=== PATIENT | female | born 1985 | race African-American/Black ===

== ENCOUNTER 2016-02-24 16:32 | Emergency (ER) | payer OTHER ==
[~2016-02-24 16:32] MED LIST: DOCU10CA PO; FISH500C PO; MELA0.02 PO; MOTR200T44 PO; PERCOCET PO; PRENTAB43 PO; birth control pill PO; combination cream TOP
--- NOTE | 2016-02-24 19:00 | EDDOCDS ---
Physician Documentation [facility] Name: Autumn Xiong Age: 30 yrs Sex: Female : 1985 Arrival Date: 02/24/2016 Time: 16:32 Bed TR8 [facility]: 02/24/16 18:26 Discharged to Home/Self Care. Impression: Dermatitis, unspecified. - Condition is Stable. - Discharge Instructions: Rash. - Prescriptions for hydrocortisone 0.5 % Topical cream - apply 1 application by TOPICAL route 3 times per day apply small amount to affected areas; 1 tube. diphenhydramine HCl 50 mg Oral Capsule - take 1 capsule by ORAL route every 6 hours As needed; 30 capsule. - Medication Reconciliation, Local Pharmacy Hours form. - [facility]; When: 2 - 3 days; Reason: Recheck today's complaints, Continuance of care. - Problem is new. - Symptoms have improved. - Notes: USE MEDICATIONS INSTRUCTED, FOLLOW UP WITH YOUR PRIMARY DOCTOR, RETURN TO THE ER IF THE SYMPTOMS WORSEN OR BECOME CONCERNING Historical: - Allergies: no known allergies; - Home Meds: 1. Zoloft Oral once daily 2. Fish Oil Unknown Oral daily - PMHx: Depression; Anxiety; insomnia; Headaches; - PSHx: ; - Social history: Smoking status: Patient states was never smoker of tobacco. No barriers to communication noted, The patient speaks fluent Cameroonian, Speaks appropriately for age. - Family history: Not pertinent. - : The pt / caregiver states he / she is not on anticoagulants. Home medication list is obtained from the patient. - Exposure Risk Screening:: None identified. 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 2 in. (157.48 cm) (R); 16:33 Body Mass Index 23.78 (58.97 kg, 157.48 cm) dd6 MDM: 18:40 [facility] Payment Agreement was scanned into [email or web address] and attached to record. carlitos 18:40 Financial registration complete. carlitos Signatures: Gladis Caban, RN RN Long Peralta RN Tremaine Chandra, RPA-C RPA-Cck7 Kandi Rodriguez The chart was reviewed and I authenticate all verbal orders and agree with the evaluation and treatment provided.Attachments: 18:40 [facility] Payment Agreement carlitos MTDD
--- NOTE | 2016-02-24 19:00 | EDDOCDS ---
Nurse's Notes [facility] Name: Autumn Xiong Age: 30 yrs Sex: Female : 1985 Arrival Date: 02/24/2016 Time: 16:32 Bed TR8 Private MD: [place] CAMPO Diagnosis: Dermatitis, unspecified Presentation: 02/23 16:37 Presenting complaint: Patient states: skin on abdomen and back is itchy. started last srm night. Presenting complaint: Patient states: didn't use benadryl or lotion. Adult Sepsis Screening: The patient does not have new or worsening altered mentation. Patient's respiratory rate is less than 22. Systolic blood pressure is greater than 100. Patient has a qSOFA score of 0- Negative Sepsis Screen. Suicide/Homicide risk assessment- the patient denies having any suicidal and/or homicidal ideations and does not present with any other emotional, behavioral or mental health complaints. 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 Transition of care: patient was not received from another setting of care. 16:37 Acuity: USHA Level 5 srm 16:37 Method Of Arrival: Walkin/Carried/Asstd [facility] Triage Assessment: 16:39 General: Appears in no apparent distress, Behavior is appropriate for age, cooperative. srm Pain: Pain currently is 8 out of 10 on a pain scale. 16:40 HIV screening NA for this visit Offered previously. 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 Zoloft Oral once daily 2. Fish Oil Unknown Oral daily - PMHx: Depression; Anxiety; insomnia; Headaches; - PSHx: ; - Social history: Smoking status: Patient states was never smoker of tobacco. No barriers to communication noted, The patient speaks fluent South African, Speaks appropriately for age. - Family history: Not pertinent. - : The pt / caregiver states he / she is not on anticoagulants. Home medication list is obtained from the patient. - Exposure Risk Screening:: None identified. Screenin:57 Screening information is obtained from the patient. Fall risk: No risks identified. dy Assistance ADL's: requires no assistance with activities of daily living. Abuse/DV Screen: The patient / caregiver reports he/she is: not in a situation that causes fear, pain or injury. Nutritional screening: No deficits noted. Advance Directives: Currently, there is no health care proxy. home support is adequate. Assessment: 18:58 Respiratory: Airway is patent Respiratory effort is even, unlabored. dy Vital Signs: 16:33 BP 165 / 103; Pulse 81; Resp 18 S; Temp 98.5(O); Pulse Ox 100% on R/A; Weight 58.97 kg dd6 (R); Height 5 ft. 2 in. (157.48 cm) (R); 16:33 Body Mass Index 23.78 (58.97 kg, 157.48 cm) dd6 Vitals: 16:33 Log In Time: February 24, 2016 at 16:31. dd6 ED Course: 16:32 Patient visited by Emmanuel Holder PCA. dd6 16:32 Patient moved to Waiting dd6 16:33 [facility] is Private Physician. dd6 16:35 Patient moved to Pre RCE dd6 16:38 Triage Initiated srm 17:42 Patient moved to Triage 3 jf3 17:55 Patient visited by Tammy Allison PCA. jb5 17:55 Tremaine Hernadez RPA-C [facility] ck7 17:56 Quita Gusman MD is Attending Physician. ck7 18:11 Patient visited by Tremaine Hernadez RPA-C. ck7 18:26 [facility] is Referral Physician. ck7 18:37 Patient moved to TR8 jb5 18:40 [facility] Payment Agreement was scanned into [employer] and attached to record. gjb 18:46 Patient name changed from Autumn\S\\S\[place]\S\ to Autumn\S\ \S\Tyrese. EDMS 18:58 The patient / caregiver is instructed regarding the plan of care and ED course. dy 18:58 No IV's were initiated during this patient's visit. No procedures done that require dy assistance. Order Results: There are currently no results for this order. Outcome: 18:26 Discharge ordered by Provider. ck7 18:58 Discharge Assessment: patient administered narcotics - no. The following High Risk dy Discharge criteria are identified: None. Discharged to home ambulatory. Condition: stable. Discharge instructions given to patient, Instructed on discharge instructions, follow up and referral plans. medication usage, Demonstrated understanding of instructions, medications, Pt was receptive of discharge instructions/ teaching. Prescriptions given X 2. No special radiology studies were completed. Property sent home with patient. 18:58 Patient left the ED. dy Signatures: Dispatcher Med[employer] EDMS Gladis Caban, RN RN Long Peralta, RN RN Tammy Bruno, CUSTOMS BROKERAGE MANAGER CUSTOMS BROKERAGE MANAGER jb5 Emmanuel Holder, CUSTOMS BROKERAGE MANAGER CUSTOMS BROKERAGE MANAGER dd6 Tremaine Hernadez, RPA-C RPA-Cck7 Gera Roldan,RN RN Kandi Snell MTDD
--- NOTE | 2016-02-26 19:59 | EDDOCDS ---
Nurse's Notes [facility] Name: Autumn Xiong Age: 30 yrs Sex: Female : 1985 Arrival Date: 02/24/2016 Time: 16:32 Bed TR8 Private MD: [place]Angela CAMPO Diagnosis: Dermatitis, unspecified Presentation: 02/23 16:37 Presenting complaint: Patient states: skin on abdomen and back is itchy. started last srm night. Presenting complaint: Patient states: didn't use benadryl or lotion. Adult Sepsis Screening: The patient does not have new or worsening altered mentation. Patient's respiratory rate is less than 22. Systolic blood pressure is greater than 100. Patient has a qSOFA score of 0- Negative Sepsis Screen. Suicide/Homicide risk assessment- the patient denies having any suicidal and/or homicidal ideations and does not present with any other emotional, behavioral or mental health complaints. 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 Transition of care: patient was not received from another setting of care. 16:37 Acuity: USHA Level 5 srm 16:37 Method Of Arrival: Walkin/Carried/Asstd [facility] Triage Assessment: 16:39 General: Appears in no apparent distress, Behavior is appropriate for age, cooperative. srm Pain: Pain currently is 8 out of 10 on a pain scale. 16:40 HIV screening NA for this visit Offered previously. 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 Zoloft Oral once daily 2. Fish Oil Unknown Oral daily - PMHx: Depression; Anxiety; insomnia; Headaches; - PSHx: ; - Social history: Smoking status: Patient states was never smoker of tobacco. No barriers to communication noted, The patient speaks fluent Jamaican, Speaks appropriately for age. - Family history: Not pertinent. - : The pt / caregiver states he / she is not on anticoagulants. Home medication list is obtained from the patient. - Exposure Risk Screening:: None identified. Screenin:57 Screening information is obtained from the patient. Fall risk: No risks identified. dy Assistance ADL's: requires no assistance with activities of daily living. Abuse/DV Screen: The patient / caregiver reports he/she is: not in a situation that causes fear, pain or injury. Nutritional screening: No deficits noted. Advance Directives: Currently, there is no health care proxy. home support is adequate. Assessment: 18:58 Respiratory: Airway is patent Respiratory effort is even, unlabored. dy Vital Signs: 16:33 BP 165 / 103; Pulse 81; Resp 18 S; Temp 98.5(O); Pulse Ox 100% on R/A; Weight 58.97 kg dd6 (R); Height 5 ft. 2 in. (157.48 cm) (R); 16:33 Body Mass Index 23.78 (58.97 kg, 157.48 cm) dd6 Vitals: 16:33 Log In Time: February 24, 2016 at 16:31. dd6 ED Course: 16:32 Patient visited by Emmanuel Holder PCA. dd6 16:32 Patient moved to Waiting dd6 16:33 [facility] is Private Physician. dd6 16:35 Patient moved to Pre RCE dd6 16:38 Triage Initiated srm 17:42 Patient moved to Triage 3 jf3 17:55 Patient visited by Tammy Allison PCA. jb5 17:55 Tremaine Hernadez RPA-C [facility] ck7 17:56 Quita Gusman MD is Attending Physician. ck7 18:11 Patient visited by Tremaine Hernadez RPA-C. ck7 18:26 [facility] is Referral Physician. ck7 18:37 Patient moved to TR8 jb5 18:40 [facility] Payment Agreement was scanned into [employer] and attached to record. gjb 18:46 Patient name changed from Autumn\S\\S\[place]\S\ to Autumn\S\ \S\Tyrese. EDMS 18:58 The patient / caregiver is instructed regarding the plan of care and ED course. dy 18:58 No IV's were initiated during this patient's visit. No procedures done that require dy assistance. 02/24 09:22 T-Sheet-- Draft Copy was scanned into [employer] and attached to record. gb Order Results: There are currently no results for this order. Outcome: 02/23 18:26 Discharge ordered by Provider. ck7 18:58 Discharge Assessment: patient administered narcotics - no. The following High Risk dy Discharge criteria are identified: None. Discharged to home ambulatory. Condition: stable. Discharge instructions given to patient, Instructed on discharge instructions, follow up and referral plans. medication usage, Demonstrated understanding of instructions, medications, Pt was receptive of discharge instructions/ teaching. Prescriptions given X 2. No special radiology studies were completed. Property sent home with patient. 18:58 Patient left the ED. dy Signatures: Dispatcher MedHost EDMS Gladis Caban, RN RN [facility] Darlene Neely, Reg Reg Long Becerra RN RN Tammy Bruno, NET MANAGER NET MANAGER jb5 Emmanuel Holder, NET MANAGER NET MANAGER dd6 Tremaine Hernadez, RPA-C RPA-Cck7 Gera RoldanRN RN Kandi Snell Chart Complete PEDRO
--- NOTE | 2016-02-26 19:59 | EDDOCDS ---
Physician Documentation [facility] Name: Autumn Xiong Age: 30 yrs Sex: Female : 1985 Arrival Date: 02/24/2016 Time: 16:32 Bed TR8 [facility] Disposition: 02/24/16 18:26 Discharged to Home/Self Care. Impression: Dermatitis, unspecified. - Condition is Stable. - Discharge Instructions: Rash. - Prescriptions for hydrocortisone 0.5 % Topical cream - apply 1 application by TOPICAL route 3 times per day apply small amount to affected areas; 1 tube. diphenhydramine HCl 50 mg Oral Capsule - take 1 capsule by ORAL route every 6 hours As needed; 30 capsule. - Medication Reconciliation, Local Pharmacy Hours form. - [facility]; When: 2 - 3 days; Reason: Recheck today's complaints, Continuance of care. - Problem is new. - Symptoms have improved. - Notes: USE MEDICATIONS INSTRUCTED, FOLLOW UP WITH YOUR PRIMARY DOCTOR, RETURN TO THE ER IF THE SYMPTOMS WORSEN OR BECOME CONCERNING Historical: - Allergies: no known allergies; - Home Meds: 1. Zoloft Oral once daily 2. Fish Oil Unknown Oral daily - PMHx: Depression; Anxiety; insomnia; Headaches; - PSHx: ; - Social history: Smoking status: Patient states was never smoker of tobacco. No barriers to communication noted, The patient speaks fluent Stateless, Speaks appropriately for age. - Family history: Not pertinent. - : The pt / caregiver states he / she is not on anticoagulants. Home medication list is obtained from the patient. - Exposure Risk Screening:: None identified. 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 2 in. (157.48 cm) (R); 16:33 Body Mass Index 23.78 (58.97 kg, 157.48 cm) dd6 MDM: 18:40 [facility] Payment Agreement was scanned into [employer] and attached to record. carlitos 18:40 Financial registration complete. carlitos 02/24 09:22 T-Sheet-- Draft Copy was scanned into [employer] and attached to record. gb Signatures: Gladis Caban, RN RN Darlene Gongora, Jay Jay Reg Long Becerra RN Tremaine Chandra, RPA-C RPA-Cck7 Kandi Rodriguez The chart was reviewed and I authenticate all verbal orders and agree with the evaluation and treatment provided.Attachments: 02/23 18:40 [facility] Payment Agreement gjb 02/24 09:22 T-Sheet-- Draft Copy gb Chart Complete MTDD
--- NOTE | 2016-02-26 19:59 | EDDOCDS ---
Physician Documentation [facility] Name: Autumn Xiong Age: 30 yrs Sex: Female : 1985 Arrival Date: 02/24/2016 Time: 16:32 Bed TR8 [facility] Disposition: 02/24/16 18:26 Discharged to Home/Self Care. Impression: Dermatitis, unspecified. - Condition is Stable. - Discharge Instructions: Rash. - Prescriptions for hydrocortisone 0.5 % Topical cream - apply 1 application by TOPICAL route 3 times per day apply small amount to affected areas; 1 tube. diphenhydramine HCl 50 mg Oral Capsule - take 1 capsule by ORAL route every 6 hours As needed; 30 capsule. - Medication Reconciliation, Local Pharmacy Hours form. - [facility]; When: 2 - 3 days; Reason: Recheck today's complaints, Continuance of care. - Problem is new. - Symptoms have improved. - Notes: USE MEDICATIONS INSTRUCTED, FOLLOW UP WITH YOUR PRIMARY DOCTOR, RETURN TO THE ER IF THE SYMPTOMS WORSEN OR BECOME CONCERNING Historical: - Allergies: no known allergies; - Home Meds: 1. Zoloft Oral once daily 2. Fish Oil Unknown Oral daily - PMHx: Depression; Anxiety; insomnia; Headaches; - PSHx: ; - Social history: Smoking status: Patient states was never smoker of tobacco. No barriers to communication noted, The patient speaks fluent Congolese, Speaks appropriately for age. - Family history: Not pertinent. - : The pt / caregiver states he / she is not on anticoagulants. Home medication list is obtained from the patient. - Exposure Risk Screening:: None identified. 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 2 in. (157.48 cm) (R); 16:33 Body Mass Index 23.78 (58.97 kg, 157.48 cm) dd6 MDM: 18:40 [facility] Payment Agreement was scanned into [employer] and attached to record. carlitos 18:40 Financial registration complete. carlitos 02/24 09:22 T-Sheet-- Draft Copy was scanned into [employer] and attached to record. gb Signatures: Gladis Caban, RN RN Darlene Gongora, Jay Jay Reg Long Becerra RN Tremaine Chandra, RPA-C RPA-Cck7 Kandi Rodriguez The chart was reviewed and I authenticate all verbal orders and agree with the evaluation and treatment provided.Attachments: 02/23 18:40 [facility] Payment Agreement gjb 02/24 09:22 T-Sheet-- Draft Copy gb Chart Complete MTDD
== END 2016-02-24 18:58 | disposition home or self-care (01) ==
LOC: M ED 16:32
DX: L30.9 Dermatitis, unspecified (principal); F32.9 Major depressive disorder, single episode, unspecified; F41.9 Anxiety disorder, unspecified; G47.00 Insomnia, unspecified; R51 Headache; Z79.899 Other long term (current) drug therapy

== ENCOUNTER 2016-06-07 22:35 | Inpatient (IN) | payer OTHER ==
[~2016-06-07] VITALS: Ht 157.5 cm; Wt 62.3 kg
[2016-06-07] MEDS ORDERED: DIVA250T PO (22:56)
[2016-06-07] MEDS ORDERED: PRAZ2CAP PO (22:56)
[2016-06-07] MEDS ORDERED: BUPR150T5 PO (22:56)
[2016-06-07] MEDS ORDERED: HYDR25T PO (22:56)
[2016-06-07] MEDS ORDERED: ZOLO100T PO (22:56)
[2016-06-07] MEDS ORDERED: QUET1TAB8 PO (22:56)
[2016-06-07] MEDS ORDERED: ZANA4CAP PO (22:56)
[2016-06-07] MEDS ORDERED: hydrOXYzine 50 MG TAB PO ONE (23:45)
[2016-06-08 00:06] LABS: MEAN CORPUSCULAR HGB CONC 30.5 g/dl (32.0-36.5); MEAN CORPUSCULAR VOLUME 81.8 fl (80.0-96.0); RED CELL DISTRIBUTION WIDTH 13.2 % (11.5-14.5); WHITE BLOOD COUNT 13.1 K/mm3 (4.0-10.0)
[2016-06-08 00:30] LABS: METHADONE URINE NEGATIVE (NEGATIVE)
[2016-06-08 00:39] LABS: ALBUMIN 3.5 GM/DL (3.2-5.2); ALKALINE PHOSPHATASE 100 U/L (45-117); ALT/SGPT 15 U/L (12-78); ANION GAP 6 MEQ/L (8-16); AST/SGOT 9 U/L (15-37); BILIRUBIN,DIRECT < 0.1 MG/DL (0.0-0.2); BILIRUBIN,TOTAL 0.3 MG/DL (0.2-1.0); BLOOD UREA NITROGEN 12 MG/DL (7-18); CALCIUM LEVEL 8.1 MG/DL (8.5-10.1); CARBON DIOXIDE LEVEL 27 MEQ/L (21-32); CHLORIDE LEVEL 106 MEQ/L (98-107); CREATININE FOR GFR 0.73 MG/DL (0.55-1.02); GLOMERULAR FILTRATION RATE > 60.0 (>60); GLUCOSE, FASTING 126 MG/DL (70-105); SODIUM LEVEL 139 MEQ/L (136-145)
[2016-06-08] MEDS ORDERED: FISH1000 PO (01:10)
[2016-06-08] MEDS ORDERED: MEDR4PAK PO (01:10)
[2016-06-08] MEDS ORDERED: traZODone 50 MG TAB PO PRN (01:15)
[2016-06-08] MEDS ORDERED: MAALOX 30 ML SUSP *UDC PO PRN (01:15)
[2016-06-08] MEDS ORDERED: MOM 30ML SUSPENSION UDC PO PRN (01:15)
[2016-06-08] MEDS ORDERED: hydrOXYzine 25 MG TAB PO PRN (01:30)
[2016-06-08] MEDS: QUEtiapine FUMARATE 100 MG TAB PO SCH ×2 (02:09→21:39)
[2016-06-08 05:24] VITALS: BP 108/66
[2016-06-08] MEDS: SERTRALINE 100 MG TAB PO SCH (09:59)
--- NOTE | 2016-06-08 10:06 | HPEPDOC ---
Medical History and Physical Date of Admission Jun 08, 2016 at 01:13 History and Physical PCP: [facility] ATTENDING: Dr. Long Iraheta HPI: 30yoF admitted to [facility] for PTSD, being medically examined today. No acute medical complaints today. Denies any fevers, chills, weakness, fatigue, BLAKE, CP, SOB, cough, palpitations, abdominal pain, N/V/D or changes in bowel or bladder habits. PMHx: PTSD History of TBI. Related to combat experiences. Chronic headaches. Follows with [facility]. Chronic low back pain /thoracic pain/myofascial pain syndrome. Seen by [facility] in past. Currently following with [facility] [place] and Pain mgmt [facility]. Received injections last 06/04/16 at [facility] per pt. Depression Anxiety Insomnia PSHX: SOCHX: Resides in: [place], from [facility]. Marital Status: Single Kids: 16 mo old stays with pt mother in [facility]. 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 ROS: As noted in HPI, otherwise 11pt ROS of systems reviewed and remarkable only for LMP 05/24/16. Patient states she sometimes gets itching in her lower extremities. She is not reporting this currently. Patient reports no rashes or skin lesions. PE: GEN: 30yoF, appears stated age. Well-nourished, well developed. No acute distress. Alert and oriented x 3. Flat affect, avoids eye contact. HEENT: Normocephalic, atraumatic. Pupils are equal, round, and reactive to light. Extraocular movements are intact. No nystagmus appreciated. Sclera are nonicteric. Conjunctiva without injection. Nose midline. Nasal turbinates without bogginess. EACs both patent BL. TMs both visualized and cline with good cone of light, no bulging or erythema. No facial asymmetry. Moist mucous membranes. Dentition fair. Pharynx pink and moist, no cobblestoning. Neck supple , trachea midline. No lymphadenopathy or thyromegaly appreciated. CHEST: Regular rate and rhythm, +S1, +S2 LUNGS: Clear to auscultation bilaterally. No wheezes, rales, or rhonchi. Breathing appears symmetric and easy. Patient is speaking in full sentences. No accessory muscle use. ABD: Round, soft, non-tender, non-distended. +Bowel sounds throughout. No rebound or guarding. No costovertebral angle tenderness. EXT: Pulses 2+ bilaterally dorsalis pedis and radial. No lower extremity edema appreciated. SKIN: [place], dry, warm. Capillary refill <2sec. No rashes, skin lesions. NEURO: Alert and oriented x 3. Cranial nerves III-XII are intact. No focal deficits appreciated. EKG: pending. A&P: 30yoF admitted to [facility] for PTSD 1. Psych. Plan per Psychiatry. Obtain baseline EKG to assure the safety of psychiatric medications as they can prolong the QT interval. 2. Chronic back pain/myofascial pain. Follows with pain management at [place] [facility] well as [facility]. States she received injections for her pain 06/04/16. She does not feel she needs to see pain management at this time. Continue Tizanidine 4 mg 3 times a day as needed. 3. Chronic headaches/history of TBI. Follows with [facility] as outpatient. Continue Depakote as per neurology. 4. Follow up with PCP on discharge. 5. Leukocytosis. Patient is asymptomatic. Afebrile. Recheck CBC. 6. Vitamin D deficiency. Vitamin D level 12/1609.3. Recheck vitamin D level. 7. Add HCG to admission labs 8. Kayla MOREIRA present throughout exam. Vital Signs Vital Signs Date Time Temp Pulse Resp B/P (MAP) Pulse Ox O2 Delivery O2 Flow Rate FiO2 06/08/16 05:24 96.7 54 16 108/66 (80) 06/08/16 02:59 100 Room Air Laboratory Data Labs 24H Laboratory Tests 2 06/07/16 23:48: Anion Gap 6L, Glomerular Filtration Rate > 60.0, Calcium Level 8.1L, Aspartate Amino Transf (AST/SGOT) 9L, Alanine Aminotransferase (ALT/SGPT) 15, Alkaline Phosphatase 100, Total Bilirubin 0.3, Direct Bilirubin < 0.1, Total Protein 7.0 , Albumin 3.5, Albumin/Globulin Ratio 1.00, Thyroid Stimulating Hormone (TSH) 1.340, Salicylates Level < 1.7L, Acetaminophen Level < 2.0L, Valproic Acid ( Depakene) Level 3.6L, Ethyl Alcohol Level 0.003 06/07/16 23:53: Urine Amphetamines Screen NEGATIVE, Urine Benzodiazepines Screen NEGATIVE, Urine Opiates Screen NEGATIVE, Urine Methadone Screen NEGATIVE, Urine Barbiturates Screen NEGATIVE, Urine Phencyclidine Screen NEGATIVE, Urine Cocaine Metabolite Screen NEGATIVE, Urine Cannabinoids Screen NEGATIVE CBC/BMP Laboratory Tests 06/07/16 23:48 Red Blood Count 4.42, Mean Corpuscular Volume 81.8, Mean Corpuscular Hemoglobin 25.0 L, Mean Corpuscular Hemoglobin Concent 30.5 L, Red Cell Distribution Width 13.2 Home Medications Scheduled Divalproex Sodium (Divalproex Sodium Dr) 500 Mg Tab, 500 MG PO QAM for Divalproex Sodium (Divalproex Sodium Dr) 250 Mg Tab, 250 MG PO QPM for 750MG TOTAL QPM Divalproex Sodium (Divalproex Sodium Dr) 500 Mg Tab, 500 MG PO QPM for 750MG TOTAL QPM Fish Oil (Fish Oil) 1,000 Mg Cap, 1,000 MG PO BID Methylprednisolone (Medrol Dosepak) 4 Mg Neil, 4 MG PO ASDIRECTED for FILLED 06/04 Prazosin Hcl (Prazosin HCl) 2 Mg Cap, 6 MG PO QHS Quetiapine Fumerate (Quetiapine Fumarate) 100 Mg Tab, 200 MG PO QHS for PER PHARMACY Scheduled PRN Hydroxyzine HCl (Hydroxyzine HCl) 25 Mg Tab, 50 MG PO TID PRN for ANXIETY Tizanidine Hydrochloride (Zanaflex) 4 Mg Cap, 4 MG PO TID PRN for MUSCLE SPASMS Allergies Coded Allergies: No Known Allergies (Unverified , 11/13/13) La Welch Jun 08, 2016 10:06
[2016-06-08] MEDS ORDERED: DIVA500T3 PO ×2 (10:45)
[2016-06-08] MEDS ORDERED: DIVA250T PO (10:45)
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
[2016-06-08 11:56] LABS: CONTROL LINE HCG INT CTR LINE PRESENT
[2016-06-08 18:00] VITALS: BP 114/60
[2016-06-09 07:10] VITALS: BP 108/56
[2016-06-09 07:12] LABS: MEAN CORPUSCULAR HGB CONC 29.5 g/dl (32.0-36.5); MEAN CORPUSCULAR VOLUME 81.4 fl (80.0-96.0); RED CELL DISTRIBUTION WIDTH 13.3 % (11.5-14.5); WHITE BLOOD COUNT 8.8 K/mm3 (4.0-10.0)
[2016-06-09] MEDS: tiZANidine 4 MG TAB PO PRN ×2 (07:57→21:16)
[2016-06-09] MEDS: ACETAMINOPHEN TAB 650MG DOSE (2X325MG) PO PRN ×2 (07:57→21:16)
[2016-06-09] MEDS: SERTRALINE 100 MG TAB PO SCH (07:57)
--- NOTE | 2016-06-09 08:06 | ECGEPIP ---
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
[2016-06-09 18:00] VITALS: BP 132/80
[2016-06-09] MEDS: QUEtiapine FUMARATE 100 MG TAB PO SCH (21:16)
[2016-06-09] MEDS: IBUPROFEN 400 MG TAB PO PRN (22:35)
[2016-06-10 07:00] VITALS: BP 95/50
[2016-06-10] MEDS: SERTRALINE 100 MG TAB PO SCH (08:11)
[2016-06-10] MEDS ORDERED: SERTRALINE HCL 50 MG TAB PO ONE (09:00)
[2016-06-10] MEDS: hydrOXYzine 25 MG TAB PO SCH ×3 (09:26→21:43)
[2016-06-10] MEDS: DIVALPROEX 500 MG TAB PO SCH ×2 (09:26→21:43)
[2016-06-10] MEDS: tiZANidine 4 MG TAB PO SCH ×3 (09:26→21:44)
[2016-06-10] MEDS: OMEGA-3 1050MG CAPSULE PO SCH ×2 (11:00→21:43)
--- NOTE | 2016-06-10 15:32 | IPN ---
DATE: 06/09/2016 SUBJECTIVE: Autumn Xiong is downcast and sad, states she had thoughts of hurting herself. She is quite difficult to understand. She is ruminative and repetitive. She states she has been eight years in counseling and she has medications other than the ones that we have prescribed. She has repeated that she gave a paper with her other medications to Dr. Georges. We looked up her other medications which included Depakote and Prazosin, but patient kept responding and repeating about the paper of her medications that she gave to Dr. Georges over four times. She states she is normally not this bad, that she is being med-boarded, and that Dr. Georges has a list of her medications. Her speech is slow. She is slow to respond. Thought process is delayed. No loose associations. No abnormal or psychotic thoughts. Judgment and insight are difficult at this time to determine. They would seem poor. She is fully oriented. Recent and remote memory intact. Attention and concentration intact. No disturbance of language. Full fund of knowledge. Mood is low. Affect is flat. IMPRESSION: Major depressive illness. MTDD
[2016-06-10 18:00] VITALS: BP 121/75
--- NOTE | 2016-06-10 19:09 | IPN ---
DATE: 06/10/2016 When I met with her yesterday she seemed completely unsure and unable to remember her various medications and kept referring to a list that we were supposed to look at. Today, again, medications seem to be an issue and we restarted her ambulatory medications that had not been originally prescribed, including her fish oil, her Depakote, her hydroxyzine, which was changed to a scheduled medication. Her mood seems exceptionally low. Her insight is poor. I increased her Zoloft after repetitively questioning whether she had been on it previously to 150 mg daily. Speech was slow. Thought processes seem also slow. She had no loose associations. She did not express any abnormal psychotic thoughts. Her judgment and insight seem poor. She was fully oriented. Her recent and remote memory did not seem intact. Her attention and concentration were poor. Her eye contact was poor. Her knees were shaking. She had a minimal fund of knowledge. Mood was low. Affect was sad. IMPRESSION: 1. Major depression, rule out bipolar disorder with depressive features.
[2016-06-10] MEDS: DIVALPROEX 250 MG TAB PO SCH (21:42)
[2016-06-10] MEDS: PRAZOSIN 1 MG CAP PO SCH (21:43)
[2016-06-10] MEDS: QUEtiapine FUMARATE 100 MG TAB PO SCH (21:44)
[2016-06-11 06:08] VITALS: BP 102/58
[2016-06-11] MEDS: DIVALPROEX 500 MG TAB PO SCH ×2 (09:03→20:24)
[2016-06-11] MEDS: tiZANidine 4 MG TAB PO SCH ×3 (09:04→21:48)
[2016-06-11] MEDS: OMEGA-3 1050MG CAPSULE PO SCH ×2 (09:04→21:49)
[2016-06-11] MEDS: SERTRALINE HCL 50 MG TAB PO SCH (09:04)
[2016-06-11] MEDS: hydrOXYzine 25 MG TAB PO SCH ×3 (09:04→20:24)
[2016-06-11 18:00] VITALS: BP 100/64
[2016-06-11] MEDS: DIVALPROEX 250 MG TAB PO SCH (20:23)
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
[2016-06-11] MEDS: PRAZOSIN 1 MG CAP PO SCH (21:48)
[2016-06-11] MEDS: QUEtiapine FUMARATE 100 MG TAB PO SCH (21:49)
[2016-06-12 06:08] VITALS: BP 120/58
[2016-06-12] MEDS: OMEGA-3 1050MG CAPSULE PO SCH ×2 (08:30→20:20)
[2016-06-12] MEDS: hydrOXYzine 25 MG TAB PO SCH ×3 (08:30→20:21)
[2016-06-12] MEDS: tiZANidine 4 MG TAB PO SCH ×3 (08:30→21:43)
[2016-06-12] MEDS: SERTRALINE HCL 50 MG TAB PO SCH (08:30)
[2016-06-12] MEDS: DIVALPROEX 500 MG TAB PO SCH ×2 (08:30→20:20)
[2016-06-12] MEDS: QUEtiapine FUMARATE 100 MG TAB PO SCH ×2 (09:40→22:23)
[2016-06-12 18:00] VITALS: BP 100/58
--- NOTE | 2016-06-12 19:03 | IPNPDOC ---
[facility] Progress Note Progress Note DATE OF SERVICE: 06/12/16 HISTORY: 30 year old female with history of PTSD and borderline personality disorder who was admitted for suicidal, homicidal ideation and severe PTSD symptoms and depression who has been on Depakote, Seroquel, Zoloft, Gabapentin VITAL SIGNS: See below. NEW TEST RESULTS:None CURRENT MEDICATIONS: See below. MENTAL STATUS EXAMINATION: Patient is a 30-year old female, who is alert, more cooperative, more engaged and with better eye contact. Speech: Normal Language skills are Fair. Thought processes including: Linear, goal directed. Thought content: Negative for suicidal ideation, negative for homicidal ideation , negative for delusional thoughts, negative for auditory or visual hallucinations. She is hypervigilant due to PTSD, has flashbacks and nightamres due PTSD. Abstract reasoning, and computation: Fair . Description of associations: Not loose. Description of abnormal or psychotic thoughts: Positive for flashbacks, for depersonalization, hypervigilant. Judgment: Improving. Insight: Improving. Orientation: Oriented x 3. Recent and remote memory: Intact. Attention span and concentration: Good. Language: Normal. Fund of knowledge: Full. Mood: " I havent had suicidal thoughts but Im edgy". Affect: Labile, irritable DIAGNOSES: 1. PTSD. 2. Borderline Personality D/O. 3. Major Depression. ASSESSMENT:Patient has improved. She is not as guarded and suspicious as she was when she was admitted. She has been able to control her impulses fairly well , even when she has been exposed to violent/aggressive behavior from her peers, she has not reacted to that. She is anxious because she needs to pay her rent online and she hasnt been able to do it because cant remember her password. MANAGEMENT PLAN: Will continue with current treatment plan, until mood is brighter. It is desirable to decrease her levels of irritability/labile affect and to help her overcome her social isolation and low energy levels. TIME SPENT: 25 minutes. Vital Signs Vital Signs Date Time Temp Pulse Resp B/P (MAP) Pulse Ox O2 Delivery O2 Flow Rate FiO2 06/12/16 06:08 98.1 60 14 120/58 (78) Room Air 06/08/16 02:59 100 Current Medications Current Medications Acetaminophen (Tylenol Tab) 650 mg Q6HP PRN PO HEADACHE or DISCOMFORT Last administered on 06/09/16 21:16; Start 06/08/16 at 01:15; Stop 07/08/16 at 01:14 Al Hydrox/Mg Hydrox/Simethicone (Mylanta) 30 ml Q4HP PRN PO HEARTBURN/ INDIGESTION; Start 06/08/16 at 01:15; Stop 07/08/16 at 01:14 Divalproex Sodium (Depakote) 250 mg QPM PO Last administered on 06/11/16 20:23 ; Start 06/10/16 at 21:00; Stop 07/10/16 at 20:59 Divalproex Sodium (Depakote) 500 mg QAM PO Last administered on 06/12/16 08:30 ; Start 06/10/16 at 09:00; Stop 07/10/16 at 08:59 Divalproex Sodium (Depakote) 500 mg QPM PO Last administered on 06/11/16 20:24 ; Start 06/10/16 at 21:00; Stop 07/10/16 at 20:59 Fish Oil ([place]-3 (1050mg)) 1 ea BID PO Last administered on 06/12/16 08:30; Start 06/10/16 at 09:00; Stop 07/10/16 at 08:59 Home Med (Med Rec Complete!) ASDIRECTED XX ; Start 06/08/16 at 01:15; Stop at 01:15; Status DC Hydroxyzine HCl (Atarax) 25 mg Q6HP PRN PO ANXIETY Last administered on 21:39; Start 06/08/16 at 01:30; Stop 06/10/16 at 08:28; Status DC Hydroxyzine HCl (Atarax) 25 mg TID PO Last administered on 06/12/16 16:20; Start 06/10/16 at 09:00; Stop 07/08/16 at 01:29 Ibuprofen (Advil) 400 mg Q6HP PRN PO PAIN Last administered on 06/09/16 22:35 ; Start 06/09/16 at 22:30; Stop 07/09/16 at 22:29 Magnesium Hydroxide (Milk Of Magnesia) 30 ml DAILYPRN PRN PO CONSTIPATION; Start 06/08/16 at 01:15; Stop 07/08/16 at 01:14 Prazosin HCl (Minipress) 6 mg QHS PO Last administered on 06/11/16 21:48; Start 06/10/16 at 21:00; Stop 07/10/16 at 20:59 Quetiapine Fumarate (SEROquel) 100 mg QAM PO Last administered on 06/12/16 09: 40; Start 06/12/16 at 09:00; Stop 07/12/16 at 08:59 Quetiapine Fumarate (SEROquel) 100 mg QHS PO Last administered on 06/11/16 21: 49; Start 06/07/16 at 21:00; Stop 07/07/16 at 20:59 Sertraline HCl (Zoloft) 100 mg DAILY PO Last administered on 06/10/16 08:11; Start 06/08/16 at 09:00; Stop 06/10/16 at 08:30; Status DC Sertraline HCl (Zoloft) 150 mg DAILY PO Last administered on 06/12/16 08:30; Start 06/11/16 at 09:00; Stop 07/11/16 at 08:59 Tizanidine HCl (Zanaflex) 4 mg TID PO Last administered on 06/12/16 16:20; Start 06/10/16 at 09:00; Stop 07/08/16 at 01:29 Tizanidine HCl (Zanaflex) 4 mg TIDP PRN PO MUSCLE SPASMS Last administered on 21:16; Start 06/08/16 at 01:30; Stop 06/10/16 at 08:28; Status DC Trazodone HCl (Desyrel) 50 mg QHSP PRN PO INSOMNIA Last administered on 22:38; Start 06/08/16 at 01:15; Stop 07/08/16 at 01:14 Allergies Coded Allergies: No Known Allergies (Unverified , 11/13/13) LIN TENA MD June 12, 2016 19:03
[2016-06-12] MEDS: DIVALPROEX 250 MG TAB PO SCH (20:20)
[2016-06-12] MEDS: PRAZOSIN 1 MG CAP PO SCH (21:43)
[2016-06-13 07:02] VITALS: BP 106/56
[2016-06-13] MEDS: OMEGA-3 1050MG CAPSULE PO SCH ×2 (08:07→20:09)
[2016-06-13] MEDS: SERTRALINE HCL 50 MG TAB PO SCH (08:08)
[2016-06-13] MEDS: QUEtiapine FUMARATE 100 MG TAB PO SCH ×2 (08:39→21:48)
[2016-06-13] MEDS: hydrOXYzine 25 MG TAB PO SCH ×3 (08:39→20:09)
[2016-06-13] MEDS: tiZANidine 4 MG TAB PO SCH ×3 (08:39→21:49)
[2016-06-13] MEDS: DIVALPROEX 500 MG TAB PO SCH ×2 (08:39→20:09)
[2016-06-13] MEDS ORDERED: LORazepam 2 MG TAB PO STA (15:27)
[2016-06-13] MEDS: IBUPROFEN 400 MG TAB PO PRN (16:18)
[2016-06-13] MEDS ORDERED: PRAZ2CAP PO (16:40)
[2016-06-13] MEDS ORDERED: ZANA4CAP PO (16:40)
[2016-06-13] MEDS ORDERED: QUET1TAB8 PO (16:40)
[2016-06-13] MEDS ORDERED: DIVA250T PO (16:40)
[2016-06-13] MEDS ORDERED: HYDR25T PO (16:40)
[2016-06-13] MEDS ORDERED: MEDR4PAK PO (16:40)
[2016-06-13] MEDS ORDERED: DIVA500T3 PO ×2 (16:40)
[2016-06-13 18:00] VITALS: BP 109/66
[2016-06-13] MEDS: DIVALPROEX 250 MG TAB PO SCH (20:09)
[2016-06-13 21:49] VITALS: BP 126/77
[2016-06-13] MEDS: PRAZOSIN 1 MG CAP PO SCH (21:49)
--- NOTE | 2016-06-14 00:48 | IPN ---
DATE: 06/13/2016 HISTORY: This is a 30-year-old female with a history of post traumatic stress disorder (PTSD) borderline personality disorder, and major depression who was admitted for suicidal ideation, homicidal ideation, and severe PTSD symptoms, who was being treated at the behavioral clinic at [facility] and was on Depakote, Seroquel, trazodone, Atarax, and prazosin. She was taking Depakote for mood stabilization, Seroquel for the same reason, and because both Seroquel and Depakote also help with depression. She was taking prazosin that will help her with her nightmares and taking Atarax for anxiety or agitation. She also takes muscle relaxant, takes medications for muscles spasms on her right leg. Autumn was evaluated today, and she reported feeling extremely anxious immediately after the meditation group. She said she felt very edgy, very agitated. She could not say why, could not see there was a trigger during meditation or previous to meditation. Denied being exposed to traumatic events during the past 24 hours within the unit. Denied having been verbally or physical or emotionally abused by other peers or staff members. She reported having problems with sleep, even though last night said she was unable able to sleep, she was able to sleep for six hours. She reported her appetite was fine. She reported that she felt edgy, irritable, and that she was still having flashbacks and nightmares in spite of using prazosin. She is aware that she needs to control herself and stay away from people who are very agitated at the inpatient mental health unit, and she is also aware that she needs to work on her psychiatric disorder in order to be able to have a normal life, or close to normal. She says she would like not to have PTSD and to be closer to her child and be able to socialize the way that she did before she acquired PTSD. She described one of the symptoms that most bothers her is numbness or detachment from the rest of the people and from her surroundings. She denied suicidal ideation, denied homicidal ideation, denied having auditory or visual hallucinations, but she states that she continues to be hypervigilent and that tiny little things, like, for example persistent noises, can trigger her symptoms. When she was evaluated she was seen alert, more cooperative, and more engaged, but being very anxious. She was very anxious and her eye contact was not good. Her speech was normal but a little bit fast. Her language skills were fair. Her thought process was logical, goal directed. The thought content was negative for suicidal ideation, negative for homicidal ideation, negative for delusional thoughts, negative for auditory or visual hallucinations, but she has flashbacks , nightmares, and she is hypervigilent due to her PTSD. The abstract reasoning and computation are good. The description of associations: She has no loosening of her associations. Description of abnormal or psychotic thoughts: She has flashbacks. She has feelings of numbness and detachment, which is most likely depersonalization and derealization. She is hypervigilent. Her judgment has improved. Her insight has improved. She is oriented times three. Her recent and remote memory are intact. Her attention span and concentration are good. Her language is normal. Her fund of knowledge is full. Her mood for today: "I'm very anxious," as she has stated. Her affect is still labile but less labile than it was when she was admitted. DIAGNOSES: 1. Post traumatic stress disorder. 2. Borderline personality disorder. 3. Major depression. ASSESSMENT: The patient has improved. She has been able to control her impulses in spite of several chaotic situations that have been taking place at the inpatient mental health unit due to the agitation of other patients. She has gained insight into her illness. She is aware that it is going to take time to heal from PTSD, and she is aware that she needs to do some effort in order to improve her relationships with her peers at the . MANAGEMENT PLAN: She will be discharged tomorrow. Will continue with current medications upon discharge. She will be seeing her therapist at the behavioral clinic at [facility], and by the end of June she will be seeing her primary care physician, who will be able to continue or discontinue some of her medications. She is stable, not suicidal and not homicidal at the present time. She is not a danger to herself or others. She is stable to get discharged tomorrow; however, she will be reassessed tomorrow morning before she gets discharged. TIME SPENT: 25 minutes with her. PEDRO
[2016-06-14 06:25] VITALS: BP 105/50
[2016-06-14] MEDS: hydrOXYzine 25 MG TAB PO SCH (08:18)
[2016-06-14] MEDS: QUEtiapine FUMARATE 100 MG TAB PO SCH (08:18)
[2016-06-14] MEDS: OMEGA-3 1050MG CAPSULE PO SCH (08:18)
[2016-06-14] MEDS: tiZANidine 4 MG TAB PO SCH (08:18)
[2016-06-14] MEDS: SERTRALINE HCL 50 MG TAB PO SCH (08:18)
[2016-06-14] MEDS: DIVALPROEX 500 MG TAB PO SCH (08:18)
--- NOTE | 2016-06-14 09:15 | DS.PDOC ---
[facility] Discharge Summary Discharge Summary DATE OF ADMISSION: Jun 08, 2016 at 01:13 DATE OF DISCHARGE: DISCHARGE DIAGNOSES: 1. . 2. . REASON FOR ADMISSION: HISTORY: This is a 30-year-old female with a history of post traumatic stress disorder (PTSD) borderline personality disorder, and major depression who was admitted for suicidal ideation, homicidal ideation, and severe PTSD symptoms, who was being treated at the behavioral clinic at [facility] and was on Depakote, Seroquel,trazodone, Atarax, and prazosin. She was taking Depakote for mood stabilization, Seroquel for the same reason, and because both Seroquel and Depakote also help with depression. She was taking prazosin that will help her with her nightmares and taking Atarax for anxiety or agitation. She also takes muscle relaxant, takes medications for muscles spasms on her right leg.She has a history of hypervigilance, nightmare, social isolation, poor impulse control, labile affect, irritability, helplessness, hopelessness, guilt, poor attention and concentration span, low energy levels, suicidal ideation and angry outbursts. She also has a history of flashbacks that are worse when she is driving, because she feels "dazed" and "it's almost as if she's on a dream", plus she can't sleep and when is able to do it, she has nightmares. As for this hospitalization, her depression has decreased and she rates ti on a and her anxiety level on a 7/10. She is less guarded, less hypervigilant, less suspicious. She hasn't been violent or aggressive at the Unit, although she remains in her room mostly all the time, except when she attends groups. Her speech is normal, her thought process is normal, goal directed, her thought content is negative for suicidal ideation, negative for homicidal ideation, negative for delusional thoughts, negative for auditory or visual hallucinations , but is positive for flashbacks, and hypervigilance. Her recent and remote memory are intact, she's oriented x3, her judgment and insight have improved, her impulse control has improved, her fund of knowledge is full, her language is normal. She is not in danger to herself or others at the time of this discharge but she will need to continue receiving outpatient treatment, with both, psychotherapy and medications. CONSULTANTS INVOLVED: None TREATMENT AND PROGRESS ON THE UNIT : As above HOSPITAL COURSE: As above DISCHARGE ASSESSMENT: Stable to continue treatment a an outpatient. MEDICATIONS ON DISCHARGE: - Depakoate 1.250 mgs. QD for mood stabilization - Seroquel for mood stabilization?depression and anxiety - Zoloft 100 mgs. por depression/anxiety - Prazosin 6mgs. po qhs for nightmares -Trazodone 50 mgs. PRN for insomnia -Atarax PRN for anxiety PLAN/FOLLOWUP ARRANGEMENTS: Will continue treatment as an oupatient at the [facility] at [facility]. The amount of time spent in the coordination of care for this patient was approximately 25 minutes. Vital Signs/I&Os Vital Signs Date Time Temp Pulse Resp B/P (MAP) Pulse Ox O2 Delivery O2 Flow Rate FiO2 06/14/16 06:25 98.6 72 18 105/50 (68) 06/12/16 06:08 Room Air 06/08/16 02:59 100 Medications Scheduled Divalproex Sodium (Divalproex Sodium Dr) 500 Mg Tab, 500 MG PO QAM for MOOD, #10 Divalproex Sodium (Divalproex Sodium Dr) 250 Mg Tab, 250 MG PO QPM for MOOD, #10 750MG TOTAL QPM Divalproex Sodium (Divalproex Sodium Dr) 500 Mg Tab, 500 MG PO QPM for MOOD, #10 750MG TOTAL QPM Fish Oil (Fish Oil) 1,000 Mg Cap, 1,000 MG PO BID, (Reported) Methylprednisolone (Medrol Dosepak) 4 Mg Neil, 4 MG PO ASDIRECTED for , #1 FILLED 06/04 Prazosin Hcl (Prazosin HCl) 2 Mg Cap, 6 MG PO QHS for Nightmares/anxiety, #10 Quetiapine Fumerate (Quetiapine Fumarate) 100 Mg Tab, 200 MG PO QHS for MOOD, # 10 PER PHARMACY Scheduled PRN Hydroxyzine HCl (Hydroxyzine HCl) 25 Mg Tab, 50 MG PO TID PRN for ANXIETY, #10 Tizanidine Hydrochloride (Zanaflex) 4 Mg Cap, 4 MG PO TID PRN for MUSCLE SPASMS , #10 Allergies Coded Allergies: No Known Allergies (Unverified , 11/13/13) LIN TENA MD June 14, 2016 09:15
== END 2016-06-14 09:40 | disposition home or self-care (01) | DRG 882 ==
LOC: M ED 23:44 → M ED INP 06-08 01:13 → M PSY 06-08 03:17
PROVIDERS: ADMIT Psychiatry & Neurology Psychiatry; ATTEND Psychiatry & Neurology Psychiatry
DX: F43.10 Post-traumatic stress disorder, unspecified (principal); F32.9 Major depressive disorder, single episode, unspecified; E55.9 Vitamin D deficiency, unspecified; R51 Headache; F60.3 Borderline personality disorder; M79.1 Myalgia; M54.5 Low back pain; M54.6 Pain in thoracic spine; Z87.820 Personal history of traumatic brain injury; Z91.82 Personal history of military deployment; Z79.899 Other long term (current) drug therapy